=== PATIENT | female | born 1940 ===

== ENCOUNTER 2019-07-24 09:26 | Observation (INO) | payer MEDICARE ==
[2019-07-24] MEDS ORDERED: Ondansetron INJ* 2 MG/ML VIAL IV ONE (09:59)
[2019-07-24] MEDS ORDERED: HYDROmorphone INJ* 0.5 MG/0.5 ML SYRINGE IV ONE (09:59)
--- NOTE | 2019-07-24 10:01 | ED ---
Abdominal Pain/Female - HPI Summary HPI Summary: 79 year old F arriving via private car with family members complains of worsening intermittent severe diffuse abdominal pain for 1 month. Family member states patient has been using her fentanyl patch and taking Dilaudid as prescribed. Family member reports decreased appetite, constipation, difficulty passing gas for a few days, and vomiting last night. Patient additionally complains of worsening shortness of breath for the last several days per family member. Symptoms rated 8/10 in severity. Symptoms aggravated by nothing. Symptoms alleviated by nothing. 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 Family member states patient had been receiving chemotherapy but stopped 1 month ago. Family member states patient wants to resume treatment again and is waiting to hear back from surgery at [place]. Patient has had paracentesis, last one being 2019 per family member. No hx infection from abdominal fluid per family member. Hx bowel obstruction for which patient was last hospitalized from 06/21/2019 to 06/26/2019 per family member and was given fluids and kept on PO, did not require surgery or NG tube, and obstruction resolved. Patient lives in [facility] and has been visiting family in [place] for the last several weeks. Medications reviewed. Of note patient speaks some Ukrainian, regional sales trainer offered, prefers niece. - History of Current Complaint Chief Complaint: EDShortnessOfBreath Stated Complaint: VOMITING PER DAUGHTER Time Seen by Provider: 07/24/19 09:49 Hx Obtained From: Family/Hemmer [employer] Onset/Duration: Lasting Weeks, Still Present Timing: Intermittent Episode Lasting Severity Initially: Severe Severity Currently: Severe Pain Intensity: 8 Pain Scale Used: 0-10 Numeric Location: Diffuse Aggravating Factor(s): Nothing Alleviating Factor(s): Nothing Associated Signs and Symptoms: Positive: Other: - decreased appetite, constipation, difficulty passing gas, vomiting, shortness of breath Allergies/Adverse Reactions: Allergies Allergy/AdvReac Type Severity Reaction Status Date / Time No Known Allergies Allergy Verified 07/24/19 09:34 Home Medications: Home Medications Apixaban [Eliquis] 5 mg PO BID 07/24/19 [History Confirmed 07/24/19] Dexamethasone [Decadron] 2 mg PO DAILY 07/24/19 [History Confirmed 07/24/19] Famotidine [Pepcid] 40 mg PO DAILY 07/24/19 [History Confirmed 07/24/19] Hydromorphone HCl 2 - 4 mg PO Q4HR PRN 07/24/19 [History Confirmed 07/24/19] OLANZapine [Zyprexa] 2.5 mg PO BEDTIME 07/24/19 [History Confirmed 07/24/19] Omeprazole 40 mg PO DAILY 07/24/19 [History Confirmed 07/24/19] Ondansetron ODT TAB* [Zofran 4 MG Odt TAB*] 8 mg PO Q6H PRN 07/24/19 [History Confirmed 07/24/19] Prochlorperazine 10 mg TAB [Compazine 10 mg TAB] 10 mg PO Q6H PRN 07/24/19 [ History Confirmed 07/24/19] PMH/Surg Hx/FS Hx/Imm Hx - Cancer History Cancer Type, Location and Year: stage 4 colon cancer with metathesis to peritoneum - Surgical History Surgery Procedure, Year, and Place: hernia repair. right [facility] Infectious Disease History: No Infectious Disease History: Denies: Traveled Outside the [place] in Last 30 Days - Family History Known Family History: Negative: Cardiac Disease, Hypertension, Diabetes - Social History Alcohol Use: Rare Substance Use Type: Reports: None Hx Tobacco Use: Yes Smoking Status (MU): Former Smoker Review of Systems Positive: Shortness Of Breath Positive: Abdominal Pain, Vomiting, Other - decreased appetite, constipation, difficulty passing gas All Other Systems Reviewed And Are Negative: Yes Physical Exam - Summary Physical Exam Summary: Constitutional: Well-developed, Well-nourished, Alert. (-) Distressed Skin: Warm, Dry HENT: Normocephalic; Atraumatic Eyes: Conjunctiva normal Neck: Musculoskeletal ROM normal neck. (-) JVD, (-) Stridor, (-) Nuchal rigidity Cardio: Rhythm regular, rate normal, Heart sounds normal; Intact distal pulses; Radial pulses are 2+ and symmetric. (-) Murmur Pulmonary/Chest wall: Effort normal. (-) Respiratory distress, (-) Wheezes, (-) Rales Abd: Soft, diffuse abdominal tenderness with mild distension, (-) Guarding, (-) Rebound Musculoskeletal: 1+ edema to the lower extremities Lymph: (-) Cervical adenopathy Neuro: Alert, Oriented x3 Psych: Mood and affect Normal Triage Information Reviewed: Yes Vital Signs On Initial Exam: Initial Vitals Temp Pulse Resp BP Pulse Ox 97.7 F 113 19 107/77 97 07/24/19 09:30 07/24/19 09:30 07/24/19 09:30 07/24/19 09:30 07/24/19 09:30 Vital Signs Reviewed: Yes Procedures - Sedation Patient Received Moderate/Deep Sedation with Procedure: No Diagnostics - Vital Signs Vital Signs Temp Pulse Resp BP Pulse Ox 07/24/19 09:30 97.7 F 113 19 107/77 97 - Laboratory Result Diagrams: 07/25/19 07:10 07/25/19 07:10 Lab Statement: Any lab studies that have been ordered have been reviewed, and results considered in the medical decision making process. - Radiology CXR Radiology Interpretation Completed By: Radiologist Summary of Radiographic Findings: NO ACTIVE CARDIOPULMONARY DISEASE. ED physician has reviewed this imaging report. - CT Abdomen/Pelvis CT Interpretation Completed By: Radiologist Summary of CT Findings: 1. SMALL BOWEL OBSTRUCTION. THE TRANSITION OCCURS AT THE POINT OF MURAL IRREGULARITY OF. THE SMALL BOWEL, IN THE SETTING OF DIFFUSE PERITONEAL METASTATIC DISEASE, CONCERNING FOR METASTATIC INVOLVEMENT OF THE SMALL BOWEL AT THE POINT OF OBSTRUCTION. 2. LARGE AMOUNT OF ASCITES. ED physician has reviewed this report. - EKG 1150 Cardiac Rate: NL - 83 BPM EKG Rhythm: Sinus Rhythm Summary of EKG Findings: An EKG at 1150 reveals normal sinus rhythm 83 BPM. Prolonged QTc 548. No STEMI. No acute changes. ED physician has reviewed and interpreted this EKG. Re-Evaluation - Re-Evaluation First Eval Re-Evaluation Time: 10:24 Comment: patient states she hears an echo and ticking noise in her right ear for several weeks which is making her anxious per nurse Second Eval Re-Evaluation Time: 12:31 Comment: patient has an obstruction. will call general surgery Abdominal Pain Fem Course/Dx - Course Course Of Treatment: 79 y/o Georgian speaking female with a history of metastatic colon cancer, history of small bowel obstruction, ascites, presenting with abdominal pain, distention and shortness of breath. - Regarding abdominal pain, likely secondary to metastatic cancer. CT of the abdomen and pelvis shows a SBO. Surgery aware, likely medical managment. - given IVF for dehydration. - CXR does not show any acute pathology. - Diagnoses Provider Diagnoses: Small bowel obstruction, Colon cancer, Dehydration - Provider Notifications Discussed Care Of Patient With: Cecilio Olguin Time Discussed With Above Provider: 12:32 Instructed by Provider To: Other - Dr. Olguin general surgery is aware of patient. 1303 Dr. Nassar hospitalist agrees to admit patient. Discharge ED - Sign-Out/Discharge Documenting (check all that apply): Patient Departure - Discharge Plan Condition: Guarded Disposition: ADMITTED TO [facility] - Billing Disposition and Condition Condition: GUARDED Disposition: Admitted to [facility] - Attestation Statements Document Initiated by Scribe: Yes Documenting Scribe: Brooklynn Kruse Provider For Whom Betito is Documenting (Include Credential): Andres Islas MD Scribe Attestation: Brooklynn Duncan, scribed for Andres Islas MD on 07/25/19 at 0940. Scribe Documentation Reviewed: Yes Provider Attestation: The documentation as recorded by the scribeBrooklynn accurately reflects the service I personally performed and the decisions made by me, Andres Islas MD Status of Scribe Document: Viewed
[2019-07-24 10:15] LABS: ABS Lymphocytes 1.5 10^3/ul (1.0-4.8); ABS Monocytes 0.6 10^3/ul (0-0.8); ABS Neutrophils 7.5 10^3/ul (1.5-7.7); Eosinophil % 0.2 %; Hematocrit 38 % (35-47); Hemoglobin 12.8 g/dL (12.0-16.0); Lymphocyte % 15.7 %; Mean Corpuscular HGB Conc 34 g/dL (31-36); Mean Corpuscular Hemoglobin 32 pg (27-31); Mean Corpuscular Volume 95 fL (80-97); Mean Platelet Volume 6.3 fL (7.4-10.4); Platelet Count 381 10^3/uL (150-450); Red Blood Count 4.03 10^6 /uL (3.70-4.87); Red Cell Distribution Width 18 % (10-15); White Blood Count 9.7 10^3/uL (3.5-10.8)
[2019-07-24 11:26] LABS: Albumin 2.5 g/dL (3.2-5.2); Anion Gap 11 mmol/L (2-11); CO2 Carbon Dioxide 23 mmol/L (22-32); Calcium 7.7 mg/dL (8.6-10.3); Chloride 98 mmol/L (101-111); Potassium 3.7 mmol/L (3.5-5.0); Sodium 132 mmol/L (135-145)
[2019-07-24 11:33] LABS: ALT 19 U/L (7-52); AST 28 U/L (13-39); Albumin/Globulin Ratio 0.8 (1-3); Alkaline Phosphatase 127 U/L (34-104); BUN/Creatinine Ratio 29.2 (8-20); Blood Urea Nitrogen 28 mg/dL (6-24); EGFR Non-African American 56.2 (>60); Glucose 121 mg/dL (70-100); Total Protein 5.5 g/dL (6.4-8.9)
[2019-07-24] MEDS ORDERED: NS 0.9% 1000 ML** 1,000 ML IV ONE (11:36)
[2019-07-24] MEDS ORDERED: Iodixanol* (CONTRAST) 320 MG/ML 100 ML SDV IV ONE (11:40)
[2019-07-24 13:20] LABS: Magnesium 1.9 mg/dL (1.9-2.7)
[2019-07-24] MEDS ORDERED: Morphine INJ* 2 MG/ML 1 ML SYRINGE (TWO MG - NEW SYRINGE VERSION) IV PRN (14:56)
[2019-07-24] MEDS ORDERED: Ondansetron INJ* 2 MG/ML VIAL IV PRN (14:56)
[2019-07-24] MEDS ORDERED: Al Hydrox/Mg Hydrox/Simet LIQ* 30 ML UDC PO PRN (14:56)
[2019-07-24] MEDS ORDERED: HYDROmorphone TAB* 2 MG PO PRN (14:59)
[2019-07-24] MEDS ORDERED: NS 0.9% 1000 ML** 1,000 ML IV SCH (15:00)
[2019-07-24] MEDS ORDERED: PROCHLORPERAZINE INJ 5 MG/ML 2 ML VIAL IV PRN (15:00)
--- NOTE | 2019-07-24 17:19 | HP ---
HISTORY AND PHYSICAL: DATE OF ADMISSION: 07/24/19 ATTENDING PHYSICIAN WHILE IN THE HOSPITAL: Dr. Tiesha Urbano * (dictated by BARRY Cabrera). PRIMARY CARE PROVIDER: No local PCP as the patient is from [facility]. CHIEF COMPLAINT: Abdominal pain, vomiting, and shortness of breath. HISTORY OF PRESENT ILLNESS: Lukas Hooker is a 79-year-old female who presents to the emergency department due to progressively worsening abdominal pain, vomiting, and shortness of breath. The patient has been diagnosed with cecum adenocarcinoma with associated carcinomatosis. She has been seen by multiple providers in [facility] and [place], and it appears that her treatment options are limited. She reportedly recently saw surgical team in [facility], who did not offer her surgical intervention. She was previously taking 6 rounds of chemotherapy and the patient decided to stop them a month ago because of how she was feeling and how the tumors were not shrinking. Starting yesterday, the patient has had 5 episodes of emesis that was nonbloody and 2 to 3 days prior to that she stopped passing gas, though she did start having diarrhea yesterday about 3 to 4 episodes. She has progressively worsening abdominal pain, which is not getting better with the opiates she has been taking for this pain. The pain is diffuse and is sometimes worse in her right upper quadrant. She had 2 prior paracenteses and the last one was on 07/06/19. She has been feeling progressively short of breath with exertion and sometimes at rest when lying supine. She denies chest pain, dizziness, lightheadedness, blood in her stool, fever, chills. History was gathered with the use of a medical corps officer. PAST MEDICAL HISTORY: 1. History of PE, on Eliquis. 2. GERD. 3. Cecal adenocarcinoma with carcinomatosis. She does not have a local academic tutor/oncologist. PAST SURGICAL HISTORY: 1. Hernia repair approximately 15 to 20 years ago. 2. Right total hip replacement. 3. Cholecystectomy. MEDICATIONS: 1. Fentanyl patch 50 mcg per hour, 1 transdermal patch q.72 hours. 2. Omeprazole 40 mg p.o. daily. 3. Famotidine 40 mg p.o. daily. 4. Zofran 8 mg p.o. q.6 hours p.r.n. nausea, vomiting. 5. Decadron 2 mg p.o. daily. 6. Compazine 10 mg p.o. q.6 hours p.r.n. nausea, vomiting. 7. Hydromorphone 2 to 4 mg p.o. q.4 hours p.r.n. pain. 8. Zyprexa 2.5 mg p.o. at bedtime. 9. Eliquis 5 mg p.o. b.i.d. ALLERGIES: No known drug allergies. FAMILY HISTORY: Both parents are . Reviewed and noncontributory. SOCIAL HISTORY: The patient quit smoking 31 years ago. Prior to that, she smoked for 15 years and smoked approximately 4 cigarettes per day. She drinks approximately 1 alcoholic beverage per month and denies illicit drug use. She is from [facility], but has recently moved to live with family in [place] and is living with her niece and great-niece. 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 She is and has no biological children, though she raised her niece. Her great-niece, Shonda Chaudhary, is her healthcare proxy. Her phone number is . REVIEW OF SYSTEMS: An 11-point review of systems was completed and all pertinent positives and negatives are above in the HPI. All other systems are negative. PHYSICAL EXAMINATION GENERAL: An elderly female, lying in hospital bed, appearing comfortable, in no acute distress. VITAL SIGNS: Temperature 97.7 degrees Fahrenheit; pulse 113 beats per minute, later 89 beats per minute; respiratory rate 19; oxygen saturation 96% on room air; blood pressure 107/77. HEENT: Eyes: PERRL. Sclerae anicteric. ENT: Mucous membranes moist. LUNGS: Clear to auscultation throughout. CARDIO: Regular rate and rhythm without murmurs, rubs, or gallops. ABDOMEN: Normoactive bowel sounds with high-pitched sounds as well. Abdomen is minimally distended and minimally tender diffusely. No visible pulsations. EXTREMITIES: Trace pitting edema pretibially bilaterally. No clubbing or cyanosis. NEURO: The patient is alert and oriented x3. No focal deficits. Able to move all extremities. DIAGNOSTIC STUDIES/LAB DATA: White blood cell count 9.7, hemoglobin 12.8, hematocrit 38, platelet count 381. Sodium 132, potassium 3.7, chloride 98, carbon dioxide 23, anion gap 11, BUN 28, creatinine 0.96, glucose 121, calcium 7.7. Total bili 0.8, magnesium 1.9, AST 28, ALT 19, alk phos 127. Lipase less than 10. Chest x-ray: No active cardiopulmonary disease. CT abdomen and pelvis, impression: 1. Small bowel obstruction. The transition occurs at the point of mural irregularity of the small bowel, in the setting of diffuse peritoneal metastatic disease, concerning for metastatic involvement of the small bowel at the point of obstruction. 2. Large amount of ascites. EKG: Normal sinus rhythm at 83 beats per minute, normal axis. No ST depressions, elevations, or T-wave inversions. ASSESSMENT AND PLAN: Lukas Hooker is a 79-year-old female with past medical history significant for cecal adenocarcinoma; pulmonary embolism, on Eliquis; gastroesophageal reflux disease, who presents to the emergency department with shortness of breath, vomiting, and diarrhea. The patient will be admitted OBV for small bowel obstruction. 1. Small bowel obstruction. The patient and I had extensive conversation about how the bowel obstruction is the result of her cancer with carcinomatosis. She tells me she would not want surgical intervention and she is interested in palliative care. She, at this point, I do not think needs an NG tube as she is no longer vomiting. I will continue Zofran as well as Compazine as needed for breakthrough. She is interested in potentially using an NG tube at the time of our conversation; however, I do not think this is needed at this time. She will have a clear liquid diet and we will advance this as tolerated and I will start fluids as well at 100 cc per hour of normal saline. I will continue her home medications for pain control as well as IV morphine. 2. Advanced colon cancer. The patient has cecal carcinoma with associated metastasis to the omentum and the patient has seen multiple providers in [facility] and [place] for treatment options. At this point, she is interested in palliative medicine and I have consulted Dr. Tong. We will continue her pain control and as previously mentioned she is not interested in surgical intervention. 3. Ascites. This is likely secondary to her carcinomatosis. I believe she would benefit from a palliative paracentesis and she is interested in this at this time and I will try to coordinate this. I believe this is causing her shortness of breath with exertion and at this time she is not hypoxic and she is comfortable at rest. 4. Gastroesophageal reflux disease. I will continue her home famotidine and Protonix. 5. History of pulmonary embolism. I will continue her home Eliquis especially considering the patient is not interested in surgery whether it would be emergent or nonemergent. 6. FEN: Her electrolytes are within normal limits. Suspect gastrointestinal loss. Diet is clear liquid diet and fluids with normal saline at 100 cc per hour. 7. DVT prophylaxis: The patient has a DVT risk score of 5 given her history of Eliquis and I will continue her home Eliquis. 8. Code status: The patient is DNR/DNI and I have updated her MOLST. This case has been reviewed by my attending, Dr. Tiesha Urbano, and she agrees with this plan of care. TIME SPENT: Approximately 65 minutes was spent on this admission, approximately half this time was spent at bedside evaluating the patient and discussing the plan of care. BARRY CABRERA [id number]/CPS #: [id number] MTDD
--- NOTE | 2019-07-24 17:35 | PN ---
Progress Note - Progress Note Date of Service: 07/24/19 Note: Progress Note General Surgery Called on to see patient with a bowel obstruction. PMH sig for Stage IV Colon Cancer S/P 6 rounds of chemotherapy and recent obstruction which resolved after paracentesis. CT today shows significant ascites. Family members at bedside report patient is not wanting surgical intervention, hopeful that repeat paracentisis will bring some comfort. would like to arrange palliative care. Recently moved here to be with family. Pt also seen by and plan reviewed by and with Dr Olguin. Above D/W Patient, family members, Penny REDDY
[2019-07-24] MEDS ORDERED: OLANzapine TAB* 5 MG PO SCH (21:00)
[2019-07-24] MEDS: Apixaban* 5 MG TAB PO SCH (21:14)
[2019-07-24] MEDS: HYDROmorphone TAB* 2 MG PO PRN (21:19)
[2019-07-25] MEDS ORDERED: fentaNYL PATCH 50 MCG/HR TRANSDERM SCH (06:30)
[2019-07-25] MEDS ORDERED: fentaNYL Patch Check Q Shift 1 NOTE FOLLOW UP SCH (07:00)
[2019-07-25 07:39] LABS: ABS Eosinophils 0.1 10^3/ul (0-0.6); ABS Monocytes 0.7 10^3/ul (0-0.8); ABS Neutrophils 4.7 10^3/ul (1.5-7.7); Eosinophil % 0.8 %; Hematocrit 34 % (35-47); Hemoglobin 11.3 g/dL (12.0-16.0); Lymphocyte % 35.6 %; Mean Corpuscular HGB Conc 33 g/dL (31-36); Mean Corpuscular Hemoglobin 32 pg (27-31); Mean Corpuscular Volume 96 fL (80-97); Mean Platelet Volume 6.4 fL (7.4-10.4); Nucleated Red Blood Cells % 0.1; Platelet Count 323 10^3/uL (150-450); Red Blood Count 3.56 10^6 /uL (3.70-4.87); Red Cell Distribution Width 17 % (10-15); White Blood Count 8.5 10^3/uL (3.5-10.8)
[2019-07-25 07:50] LABS: Activated Partial Thrombo Time 38.5 seconds (26.0-38.0); INR 1.48 (0.82-1.09)
[2019-07-25 07:58] LABS: Calcium 7.3 mg/dL (8.6-10.3); EGFR African American 79.3 (>60); EGFR Non-African American 65.6 (>60)
[2019-07-25] MEDS ORDERED: fentaNYL* 50 MCG/ML 2 ML VIAL (100 MCG VIAL) ONE (08:46)
[2019-07-25] MEDS: Apixaban* 5 MG TAB PO SCH (08:58)
[2019-07-25] MEDS ORDERED: Pantoprazole TAB * 40 MG TAB PO SCH (09:00)
[2019-07-25] MEDS ORDERED: Famotidine TAB* 20 MG PO SCH (09:00)
--- NOTE | 2019-07-25 10:45 | DS ---
DISCHARGE SUMMARY: DATE OF ADMISSION: DATE OF DISCHARGE: 07/25/19 HISTORY: This 79-year-old woman presented with abdominal pain, vomiting, and shortness of breath. She was diagnosed and treated in [facility] for advanced colon cancer with carcinomatosis. She received about 6 rounds of chemotherapy. The patient did not receive any benefit and was quite ill from them and has refused further chemotherapy. She also saw a surgeon at the [facility] recently and was not offered any surgical intervention. She spoke to the surgical PA here last night and said she was not interested in surgery. Talking to her and her daughter, I believe they understand the situation quite well and they have agreed for a hospice referral at her home. She is basically admitted to have therapeutic paracentesis. She had a paracentesis in [facility] and another one in [place], the last being on 07/06/19. The patient describes having relief of her symptoms with the paracentesis. The daughter said that about 4 L were removed. The past week, the patient drank a little, 1 to 2 cans of Ensure a day and a little bit of water. She has had vomiting every now and then. Her pain seems to be adequately controlled on the fentanyl patch. I am not sure if she takes any oral medications at this time, but certainly if she is able to they might provide her some additional relief. The patient is going down for a therapeutic paracentesis on the morning of discharge. Her apixaban dose will be skipped this morning, she can resume it this evening. She does have a history of pulmonary embolus. FINAL DIAGNOSES: 1. Carcinoma of the cecum with carcinomatosis. 2. Gastroesophageal reflux disease. 3. History of pulmonary embolism. DISCHARGE MEDICATIONS: 1. Omeprazole 40 mg daily. 2. Ondansetron ODT 8 mg every 6 hours p.r.n. 3. Dexamethasone 2 mg daily. 4. Prochlorperazine 10 mg every 6 hours p.r.n. 5. Hydromorphone 2 to 4 mg every 4 hours p.r.n. 6. Olanzapine 2.5 mg at bedtime. 7. Apixaban 5 mg b.i.d. 8. Famotidine 40 mg daily. 9. Fentanyl patch 50 mcg, change every 3 days. A prescription was sent to [facility] for 10 fentanyl patches. Referral was made for hospice to see her at home. She will need a primary care provider as well. CONDITION ON DISCHARGE: Guarded. DISPOSITION ON DISCHARGE: Discharged home. [id number]/CPS #: [id number] MELISA
[2019-07-25 11:19] VITALS: BP 119/58
--- NOTE | 2019-07-25 12:37 | CONSULT ---
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 PMH is significant for cecum adenocarcinoma with carcinomatosis, h/o PE on eliquis and GERD. 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 Studies ab[address] CT-small bowel obstruction, ascites and metastatic disease, CXR-neg, ekg-nsr, H/H 12.8/38, BUN/CR 28/.96, egfr 56.2, Ca 7.7 and alb 2.5. Pt admitted with small bowel obstruction and cancer. Pt underwent paracentesis which improved her pain significantly. All history is from family and medical records. Lab Values: Abnormal Lab Results 07/24/19 07/25/19 07/25/19 10:05 07:10 07:10 WBC RBC Hgb Hct MCV MCH MCHC RDW Plt Count MPV Neut % (Auto) Lymph % (Auto) [place] % (Auto) Eos % (Auto) Baso % (Auto) Absolute Neuts (auto) Absolute Lymphs (auto) Absolute Monos (auto) Absolute Eos (auto) Absolute Basos (auto) Absolute Nucleated RBC Nucleated RBC % INR (Anticoag Therapy) 1.48 H APTT 38.5 H Sodium 132 L 131 L Potassium 3.7 4.0 Chloride 98 L 101 Carbon Dioxide 23 25 Anion Gap 11 5 BUN 28 H 26 H Creatinine 0.96 H 0.84 Est GFR ( Amer) 68.0 79.3 Est GFR (Non-Af Amer) 56.2 65.6 BUN/Creatinine Ratio 29.2 H 31.0 H Glucose 121 H 76 Calcium 7.7 L 7.3 L Magnesium 1.9 Total Bilirubin 0.80 AST 28 ALT 19 Alkaline Phosphatase 127 H Total Protein 5.5 L Albumin 2.5 L Globulin 3.0 Albumin/Globulin Ratio 0.8 L Lipase < 10 L 07/25/19 07:10 WBC 8.5 RBC 3.56 L Hgb 11.3 L Hct 34 L MCV 96 MCH 32 H MCHC 33 RDW 17 H Plt Count 323 MPV 6.4 L Neut % (Auto) 55.1 Lymph % (Auto) 35.6 [place] % (Auto) 8.3 Eos % (Auto) 0.8 Baso % (Auto) 0.2 Absolute Neuts (auto) 4.7 Absolute Lymphs (auto) 3.0 Absolute Monos (auto) 0.7 Absolute Eos (auto) 0.1 Absolute Basos (auto) 0.0 Absolute Nucleated RBC 0.0 Nucleated RBC % 0.1 INR (Anticoag Therapy) APTT Sodium Potassium Chloride Carbon Dioxide Anion Gap BUN Creatinine Est GFR ( Amer) Est GFR (Non-Af Amer) BUN/Creatinine Ratio Glucose Calcium Magnesium Total Bilirubin AST ALT Alkaline Phosphatase Total Protein Albumin Globulin Albumin/Globulin Ratio Lipase Laboratory Last Values WBC 8.5 10^3/uL (3.5-10.8) 07/25/19 07:10 RBC 3.56 10^6 /uL (3.70-4.87) L 07/25/19 07:10 Hgb 11.3 g/dL (12.0-16.0) L 07/25/19 07:10 Hct 34 % (35-47) L 07/25/19 07:10 MCV 96 fL (80-97) 07/25/19 07:10 MCH 32 pg (27-31) H 07/25/19 07:10 MCHC 33 g/dL (31-36) 07/25/19 07:10 RDW 17 % (10-15) H 07/25/19 07:10 Plt Count 323 10^3/uL (150-450) 07/25/19 07:10 MPV 6.4 fL (7.4-10.4) L 07/25/19 07:10 Neut % (Auto) 55.1 % 07/25/19 07:10 Lymph % (Auto) 35.6 % 07/25/19 07:10 [place] % (Auto) 8.3 % 07/25/19 07:10 Eos % (Auto) 0.8 % 07/25/19 07:10 Baso % (Auto) 0.2 % 07/25/19 07:10 Absolute Neuts (auto) 4.7 10^3/ul (1.5-7.7) 07/25/19 07:10 Absolute Lymphs (auto) 3.0 10^3/ul (1.0-4.8) 07/25/19 07:10 Absolute Monos (auto) 0.7 10^3/ul (0-0.8) 07/25/19 07:10 Absolute Eos (auto) 0.1 10^3/ul (0-0.6) 07/25/19 07:10 Absolute Basos (auto) 0.0 10^3/ul (0-0.2) 07/25/19 07:10 Absolute Nucleated RBC 0.0 10^3/ul 07/25/19 07:10 Nucleated RBC % 0.1 07/25/19 07:10 INR (Anticoag Therapy) 1.48 (0.82-1.09) H 07/25/19 07:10 APTT 38.5 seconds (26.0-38.0) H 07/25/19 07:10 Sodium 131 mmol/L (135-145) L 07/25/19 07:10 Potassium 4.0 mmol/L (3.5-5.0) 07/25/19 07:10 Chloride 101 mmol/L (101-111) 07/25/19 07:10 Carbon Dioxide 25 mmol/L (22-32) 07/25/19 07:10 Anion Gap 5 mmol/L (2-11) 07/25/19 07:10 BUN 26 mg/dL (6-24) H 07/25/19 07:10 Creatinine 0.84 mg/dL (0.51-0.95) 07/25/19 07:10 Est GFR ( Amer) 79.3 (>60) 07/25/19 07:10 Est GFR (Non-Af Amer) 65.6 (>60) 07/25/19 07:10 BUN/Creatinine Ratio 31.0 (8-20) H 07/25/19 07:10 Glucose 76 mg/dL (70-100) 07/25/19 07:10 Calcium 7.3 mg/dL (8.6-10.3) L 07/25/19 07:10 Magnesium 1.9 mg/dL (1.9-2.7) 07/24/19 10:05 Total Bilirubin 0.80 mg/dL (0.2-1.0) 07/24/19 10:05 AST 28 U/L (13-39) 07/24/19 10:05 ALT 19 U/L (7-52) 07/24/19 10:05 Alkaline Phosphatase 127 U/L (34-104) H 07/24/19 10:05 Total Protein 5.5 g/dL (6.4-8.9) L 07/24/19 10:05 Albumin 2.5 g/dL (3.2-5.2) L 07/24/19 10:05 Globulin 3.0 g/dL (2-4) 07/24/19 10:05 Albumin/Globulin Ratio 0.8 (1-3) L 07/24/19 10:05 Lipase < 10 U/L (11.0-82.0) L 07/24/19 10:05 - Objective Active Medications: Al Hydrox/Mg Hydrox/Simethicone (Maalox Plus*) 30 ml PO Q6H PRN PRN Reason: INDIGESTION Apixaban (Eliquis*) 5 mg PO BID [facility] Last Admin: 07/25/19 08:58 Dose: Not Given Famotidine (Pepcid Tab*) 40 mg PO DAILY [facility] Last Admin: 07/25/19 10:38 Dose: 40 mg Fentanyl (Duragesic Patch 50 Mcg/Hr*) 50 mcg TRANSDERM Q72H [facility] Last Admin: 07/25/19 06:19 Dose: 50 mcg Hydromorphone HCl (Dilaudid Tab*) 4 mg PO Q4HR PRN PRN Reason: PAIN - MODERATE Last Admin: 07/24/19 21:19 Dose: 4 mg Sodium Chloride (Ns 0.9% 1000 Ml) 1,000 mls @ 100 mls/hr IV PER RATE [facility] Last Admin: 07/24/19 21:14 Dose: 100 mls/hr Morphine Sulfate (Morphine Inj (Syringe))*) 2 mg IV Q4H PRN PRN Reason: PAIN - MILD Olanzapine (Zyprexa Tab*) 2.5 mg PO BEDTIME [facility] Last Admin: 07/24/19 21:14 Dose: 2.5 mg Ondansetron HCl (Zofran Inj*) 4 mg IV Q4H PRN PRN Reason: NAUSEA/VOMITING Last Admin: 07/24/19 16:24 Dose: 4 mg Pantoprazole Sodium (Protonix Tab*) 40 mg PO DAILY [facility] Last Admin: 07/25/19 10:38 Dose: 40 mg Pharmacy Profile Note (Fentanyl Patch Check Q Shift) 1 note FOLLOW UP 0700, 1900 [facility] Last Admin: 07/25/19 06:58 Dose: 1 note Prochlorperazine Edisylate (Compazine Inj*) 2.5 mg IV Q6H PRN PRN Reason: Nausea/Vomiting breakthrough Vital Signs: Vital Signs: Temp Pulse Resp BP Pulse Ox 97.6 F 86 14 119/58 100 07/25/19 11:12 07/25/19 11:12 07/25/19 11:12 07/25/19 11:12 07/25/19 11:12 Patient Weight: Weight 75.16 kg Intake and Output: Intake & Output 07/23/19 07/24/19 07/25/19 07/26/19 06:59 06:59 06:59 06:59 Intake Total 1120 1000 Balance 1120 1000 Weight 75.16 kg Intake: IV Fluids 1000 1000 Oral 120 ADLs: Meal Record Start: 07/24/19 16: 40 Freq: DAILY@0900,1400,1800 Status: Active Protocol: Created 07/24/19 16:40 System (Rec: 07/24/19 16:40 System MED-M11) Document 07/24/19 18:00 [id number] (Rec: 07/24/19 23:25 [id number] MED-C09) Document 07/25/19 09:00 [id number] (Rec: 07/25/19 12:35 [id number] MED-C09) Intake and Output Start: 07/24/19 09: 34 Freq: Status: Active Protocol: Created 07/24/19 09:34 System (Rec: 07/24/19 09:34 System ED-C24) Intake and Output Start: 07/24/19 16: 40 Freq: DAILY@0600,1400,2200 Status: Active Protocol: Created 07/24/19 16:40 System (Rec: 07/24/19 16:40 System MED-M11) Document 07/24/19 22:00 [id number] (Rec: 07/24/19 23:27 [id number] MED-C09) Document 07/25/19 06:00 [id number] (Rec: 07/25/19 07:02 [id number] MED-C11) Head: Normal Eyes: No Scleral Icterus Ears/Nose/Mouth/Throat: NL Teeth, Lips, Gums Neck: NL Appearance and Movements; NL JVP Cardiovascular: NL Sounds; No Murmurs; No JVD Respiratory: Symmetrical Chest Expansion and Respiratory Effort Neurological: NL Muscle Strength and Tone - Assessment Assessment: 79yo female with small bowel obstruction secondary to cecum adenocarcinoma - Plan Consult Plan (MU): Hospice Plan: Long discussion with granddaughter about treatment options and goals of care. Pt started her care in [facility] where she lived then moved to [place] to pursue other care and now in [place]. They have already had a hospice sign on but declined at the last minute. Not all family members are in agreement with hospice. She spent a long time reviewing with surgeons that there are no surgical options available. Meds adjust for better pain control. Hospice information given. Pt was discharged and family called next day for hospice sign on. Pt is eligible for hospice with diagnosis of stage 4 cancer. KPS 40%, PPS 30% - Time On Unit Date of Evaluation: 07/25/19 Hospice Consult Time in: 11:45 Hospice Consult Time Out: 12:45 Hospice Consult Time Total: 60 > 50% of Time Spend In Counseling or Coordinating Care: Yes
[2019-07-25] MEDS ORDERED: LORazepam TAB(*) 1 MG SL PRN (12:46)
[2019-07-25] MEDS ORDERED: fentaNYL PATCH 75 MCG/HR* 75 MCG TRANSDERM SCH (13:00)
[2019-07-25] MEDS: HYDROmorphone TAB* 2 MG PO PRN (14:34)
== END 2019-07-25 14:35 | disposition home or self-care (01) ==
LOC: ED 09:26 → MED 14:54
PROVIDERS: ADMIT Internal Medicine; ATTEND Internal Medicine
DX: C18.0 Malignant neoplasm of cecum (principal); C48.2 Malignant neoplasm of peritoneum, unspecified; K21.9 Gastro-esophageal reflux disease without esophagitis; R06.02 Shortness of breath; R10.9 Unspecified abdominal pain; K56.609 Unspecified intestinal obstruction, unspecified as to partial versus complete obstruction; E86.0 Dehydration; Z79.899 Other long term (current) drug therapy; Z86.711 Personal history of pulmonary embolism; Z79.01 Long term (current) use of anticoagulants; Z87.891 Personal history of nicotine dependence; R94.31 Abnormal electrocardiogram [ECG] [EKG]
CPT/HCPCS: 36415; 49083; 71046; 74177; 80048; 80053; 83690; 83735; 85025; 85610; 85730; 93005; 96374; 96375; 96376; 99284; A9270-GY; G0378; J1170; J2405; J3010; Q9967